=== PATIENT | female | born 1950 | race Caucasian/White ===

== ENCOUNTER 2022-01-17 10:34 | Observation (INO) ==
[2022-01-17] MEDS ORDERED: SODIUM CHLORIDE 0.9% 1000ML 1,000 ML IV SCH (11:30)
[2022-01-17 12:30] LABS: INR 0.9 (0.9-1.1); Partial Thromboplastin Ratio 1.1; Partial Thromboplastin Time 28.9 Seconds (21.0-31.0); Prothrombin Time 10.1 Seconds (9.0-12.0)
[2022-01-17 12:32] LABS: Basophils # (auto) 0.05 K/uL (0-0.2); Basophils % (auto) 0.6 %; Eosinophils # (auto) 0.19 K/uL (0-0.5); Eosinophils % (auto) 2.2 %; Hematocrit (blood only) 41.2 % (37-47); Hemoglobin 13.8 g/dL (12.0-16.0); Immature Granulocytes # (auto) 0.02 K/uL (0.00-0.02); Immature Granulocytes % (auto) 0.2 %; Lymphocytes # (auto) 2.18 K/uL (1.2-3.4); Mean Corpuscular Hemoglobin 30.5 pg (25-34); Mean Corpuscular Hgb Conc 33.5 g/dL (32-36); Mean Corpuscular Volume 90.9 fL (80-100); Mean Platelet Volume 9.9 fL (7.4-10.4); Monocytes # (auto) 0.67 K/uL (0.11-0.59); Monocytes % (auto) 7.7 %; Neutrophils # (auto) 5.62 K/uL (1.4-6.5); Neutrophils % (auto) 64.3 %; Platelet Count 328 K/uL (130-400); RDW Coefficient of Variation 14.8 % (11.5-14.5); RDW Standard Deviation 49.8 fL (36.4-46.3); Red Blood Count 4.53 M/uL (4.2-5.4); White Blood Count 8.73 K/uL (4.8-10.8)
[2022-01-17 12:45] LABS: Troponin I High Sensitivity 4.6 pg/ml (0-14)
[2022-01-17 12:46] LABS: Albumin Globulin Ratio 1.4 (0.9-2); Albumin Level 4.2 gm/dl (3.4-5.0); BUN Creatinine Ratio 19.4 (10-20); Bilirubin,Total 0.3 mg/dl (0.2-1.0); Calcium 9.2 mg/dl (8.5-10.1); Creatinine Clr Calc Pharmacy 63.4 ml/min; Est GFR (African American) 98.3 ml/min; Est GFR (Non-African American) 84.9 ml/min; Magnesium 1.8 mg/dl (1.7-2.4); Potassium 3.9 mmol/L (3.5-5.1); Total Protein 7.2 gm/dl (6.0-8.3)
[2022-01-17] MEDS ORDERED: OPTIRAY 320 125ml IV ONE (13:38)
--- NOTE | 2022-01-17 13:47 | CT Scan Report ---
UNENHANCED CT OF THE BRAIN; CT ANGIOGRAM OF THE BRAIN; CT ANGIOGRAM OF THE NECK CLINICAL HISTORY: Right-sided facial droop. Slurred speech. COMPARISON STUDY: No priors. TECHNIQUE: Unenhanced axial CT scan of the brain is performed. Subsequently, following the IV adminis tration of 120 of [address] 320, CT angiogram of the head and neck was performed from the aortic arch t o the vertex. Images are reviewed in the axial, sagittal, and coronal planes. 3-D MIPS images are cre ated and assessed. IV contrast was administered without complication. All measurements were calculate d based on NASCET criteria. A dose lowering technique was utilized adhering to the principles of ALA RA. CT DOSE: 822.00 mGycm (accession [id number]), 690.05 mGycm (accession [id number]) FINDINGS: Brain parenchyma: There is age-related involutional change noting minimal microangiopathic disease. L eft occipital encephalomalacia is consistent with a remote insult. There is no hemorrhage, mass effec t, or evidence of acute territorial ischemia by CT criteria. There is no evidence of enhancing mass l esion on the angiogram phase images. The ventricles, sulci, and cisterns are prominent secondary to i nvolutional change. A chronic lacunar infarct is noted in the right cerebellar hemisphere. Brennan-white matter differentiation is preserved. No extra-axial fluid collection is seen. Thoracic aorta: There is atherosclerotic calcification of the visualized thoracic aorta. Right carotid arterial system: The right common carotid artery is widely patent, as are the right int ernal and external carotid arteries. Calcified plaque is noted in the carotid bulb. Left carotid arterial system: The left common carotid artery is widely patent, as are the left university internship al and external carotid arteries. Minimal calcified plaque is seen in the carotid bulb. Vertebral arteries: The vertebral arteries are widely patent bilaterally and codominant. Subclavian arteries: Widely patent bilaterally. Intracranial vasculature: There is atherosclerotic calcification of the cavernous carotid and vertebr al arteries. The internal carotid arteries are patent at the skull base, as are the anterior and midd le cerebral arteries bilaterally. The vertebrobasilar system and posterior cerebral arteries are wide ly patent. The vertebral arteries are codominant. There is no aneurysm, high-grade stenosis, or focal vessel cut off seen throughout the intracranial circulation. Jugular veins: Patent bilaterally. Dural sinuses: Patent. Lung apices: Partially visualized upper lobe lung parenchyma appears clear. Soft tissues: The visualized pharyngeal soft tissues are normal in appearance noting angiographic pha se technique. The oropharyngeal airway appears widely patent. The thyroid gland is mildly enlarged an d heterogeneous. Calcified sialoliths are noted in the left parotid gland. The remaining salivary gla nds are normal in appearance. No cervical lymphadenopathy is seen. Skeletal structures: The skeletal structures are osteopenic. The calvarium appears intact. The cervic al spine is maintained noting multilevel spondylosis. No lytic or blastic lesion is seen. Orbits: The bony orbits are intact. Orbital contents are normal as visualized noting bilateral ocular lens implants. Sinuses and mastoids: There is trace mucosal thickening within the maxillary antra. The remaining par anasal sinuses are clear. The mastoid air cells are well pneumatized. IMPRESSION: 1. There is no hemorrhage, mass effect, or evidence of acute territorial ischemia by CT criteria. 2. Unremarkable CT angiogram of the brain. 3. Unremarkable CT angiogram of the neck. ACT 112: Negative or not required by law. Electronically signed by: Salty Gu M.D. 01/17/2022 1:46 PM
[2022-01-17] MEDS ORDERED: hydrALAZINE HCL 20 MG/ML VIAL IV ONE (14:42)
--- NOTE | 2022-01-17 14:42 | Emergency Department Note ---
Impression & Plan Cerebrovascular accident ED Provider Note CHIEF COMPLAINT: CVA HISTORY OF PRESENT ILLNESS: This 71 yo female patient presents to the emergency department with speech difficulties for the last 3 days. Patient states Monday morning she developed some pain in her teeth and a fullness in her tongue. The symptoms resolved quickly however she then had difficulty speaking. Patient states she did not get confused or develop weakness of the arms or legs. She thought perhaps the symptoms would resolve and therefore did not seek any medical attention. Patient's convinced her this morning that because the speech difficulties have persisted throughout the weekend that she should be seen. Patient states she has a history of hypertension and high cholesterol, she does smoke 1 pack of cigarettes per day. Her primary care physician is in [place], [place]. She used to live in that region and has not yet changed her primary care doctor. She denies any recent illnesses, fall, chest pain or shortness of breath. She denies any previous stroke history. REVIEW OF SYSTEMS: A review of systems was performed with positives and pertinent negatives listed in the history of present illness. 10 systems were reviewed and are otherwise negative. ALLERGIES: see below MEDICATIONS: see below PMH: see below SOCIAL HISTORY: see below DDx: Infection, dehydration, metabolic abnormality, hypo/hyperglycemia, electrolyte disturbance, anemia, hypoxia, cardiac sources, intracerebral event, toxicologic, neurologic, as well as other pathologies. PHYSICAL EXAM: Vital signs reviewed. General: Well-appearing 71 yo female, in no significant distress. HEENT: No scleral icterus, PERRLA, neck supple. + L subtle facial droop. no tongue deviation Cardiovascular: Regular rate and rhythm, no extra sounds. Pulmonary: Clear to auscultation bilaterally, normal work of breathing. Abdomen: Soft, nontender, nondistended, positive bowel sounds. Musculoskeletal: Atraumatic, no peripheral edema. Neurologic: Patient awake alert and oriented x 3, subtle dysarthria with mild left-sided facial droop. Intact [id number], negative pronator drift. Equal strength in all 4 extremities. Skin: Warm, dry, no rash EMERGENCY DEPARTMENT COURSE/MDM: This patient was evaluated and appeared to be in no significant distress. IV access was obtained and laboratory work was drawn. The patient was placed on the timber framer and noted to be in a normal sinus rhythm without evidence of PVC or PAC. Head CT was performed and reveals evidence of previous infarct but no acute abnormality. CT angiogram of the head and neck is unrevealing. Patient has residual left-sided facial droop and a mild dysarthria. Blood pressure is noted to be elevated throughout her stay. She was given 5 mg of IV hydralazine for better blood pressure control without dropping too far, ideally. Patient states she did take her olmesartan this morning as scheduled. Given her high risk history with previous infarct noted on CT and tobacco use, I feel she warrants further stroke evaluation in- house. Hospitalist service has been consulted for admission and further management. Patient and are aware of the plan and agreed. MONITORING: An order for cardiac monitoring was placed and the patient is noted to be in a NSR at 88 beats per minute. RADIOLOGY: see below EKG: Normal sinus rhythm at [address] segments. Normal axis. QTC of 463. No PVC, no PAC. No previous for comparison. DISPOSITION: Admission Past Med/Surg History Medical History Hyperlipidemia Hypertension Surgical History History of bilateral tubal ligation History of cataract surgery RIGHT History of section x2 History of colonoscopy History of tonsillectomy Family History Other No family history of adverse response to anesthesia Social History Smoking Status: Current every day smoker Cigarettes Per Day: 1PPD/ADVISED NPO; Second Hand Exposure: Yes; Hx Alcohol Use: No Hx Substance Use: No Preferred Language: Vincentian Communication Ability: Effective Community Sports Coordinator Required: No Beliefs That Will Affect Care: None Current Living Situation: Spouse Feels Safe at Home: Yes Assistive Devices: Glasses Allergies Allergies Allergy/AdvReac Type Severity Reaction Status Date / Time No Known Allergies Allergy Verified 01/17/22 14:15 Home Meds Home Medications Medication Instructions Recorded Confirmed olmesartan 20 mg tablet 20 mg PO QAM 03/30/19 01/17/22 aspirin 325 mg tablet 325 - 650 mg PO BID PRN 01/17/22 01/17/22 simvastatin 80 mg tablet 80 mg PO QPM 01/17/22 01/17/22 Results & Data (ED) Vital Signs Vital Signs - 24 hr 01/17/22 10:40 01/17/22 11:00 01/17/22 11:03 Temperature 36.7 C Temperature Source Temporal Artery Scan Pulse Rate 96 H 98 H Pulse Rate [Apical] 97 H Pulse Rate from SpO2 Sensor 98 H Pulse Rhythm Regular Pulse Rhythm [Apical] Regular Pulse Strength Normal Pulse Strength [Apical] Normal Respiratory Rate 20 16 18 Respiratory Effort / Characteristics Non-Labored Spontaneous Non-Labored Spontaneous Respiratory Depth Normal Normal Respiratory Pattern Regular Regular Blood Pressure 169/84 H Blood Pressure [Left Arm] 159/92 H Blood Pressure Mean 112 Blood Pressure Mean [Left Arm] 114 Blood Pressure Position Sitting Blood Pressure Position [Left Arm] Semi-fowlers Pulse Oximetry 98 97 96 Oxygen Delivery Method Room Air Room Air Sepsis Recent Fever Within 48 Hours No Sepsis New/Unexplained Change in Mental Status No Sepsis Action Taken by Nursing No Action Required 01/17/22 11:30 01/17/22 11:38 01/17/22 11:41 Temperature Temperature Source Pulse Rate 88 88 Pulse Rate [Apical] Pulse Rate from SpO2 Sensor Pulse Rhythm Pulse Rhythm [Apical] Pulse Strength Pulse Strength [Apical] Respiratory Rate 18 Respiratory Effort / Characteristics Respiratory Depth Respiratory Pattern Blood Pressure 142/115 H Blood Pressure [Left Arm] Blood Pressure Mean 124 Blood Pressure Mean [Left Arm] Blood Pressure Position Blood Pressure Position [Left Arm] Pulse Oximetry Oxygen Delivery Method Room Air Sepsis Recent Fever Within 48 Hours Sepsis New/Unexplained Change in Mental Status Sepsis Action Taken by [facility] Medications Current Medication List: was personally reviewed by me Laboratory Data Attestation: I reviewed the patient's lab results. Result diagrams: 01/17/22 11:55 01/17/22 11:55 Lab Results 01/17/22 01/17/22 01/17/22 Range/Units 11:35 11:55 11:55 WBC 8.73 (4.8-10.8) K/uL RBC 4.53 (4.2-5.4) M/uL Hgb 13.8 (12.0-16.0) g/dL Hct 41.2 (37-47) % MCV 90.9 (80-100) fL MCH 30.5 (25-34) pg MCHC 33.5 (32-36) g/dL RDW Std Deviation 49.8 H (36.4-46.3) fL RDW Coeff of Samson 14.8 H (11.5-14.5) % Plt Count 328 (130-400) K/uL MPV 9.9 (7.4-10.4) fL Immature Gran % (Auto) 0.2 % Neut % (Auto) 64.3 % Lymph % (Auto) 25.0 % [place] % (Auto) 7.7 % Eos % (Auto) 2.2 % Baso % (Auto) 0.6 % Neut # (Auto) 5.62 (1.4-6.5) K/uL Lymph # (Auto) 2.18 (1.2-3.4) K/uL [place] # (Auto) 0.67 H (0.11-0.59) K/uL Eos # (Auto) 0.19 (0-0.5) K/uL Baso # (Auto) 0.05 (0-0.2) K/uL Immature Gran # (Auto) 0.02 (0.00-0.02) K/uL PT 10.1 (9.0-12.0) Seconds INR 0.9 (0.9-1.1) APTT 28.9 (21.0-31.0) Seconds PTT Ratio 1.1 Sodium (136-145) mmol/L Potassium (3.5-5.1) mmol/L Chloride (98-107) mmol/L Carbon Dioxide (21-32) mmol/L Anion Gap (3-11) BUN (6-23) mg/dl Creatinine (0.6-1.2) mg/dl Est Cr Clr Drug Dosing ml/min Est GFR ( Amer) ml/min Est GFR (Non-Af Amer) ml/min BUN/Creatinine Ratio (10-20) Glucose (70-99(Fasting)) mg/dl Calcium (8.5-10.1) mg/dl Magnesium (1.7-2.4) mg/dl Total Bilirubin (0.2-1.0) mg/dl AST (13-39) U/L ALT (7-52) U/L Alkaline Phosphatase (34-104) U/L Troponin I High Sens (0-14) pg/ml Total Protein (6.0-8.3) gm/dl Albumin (3.4-5.0) gm/dl Globulin (2.5-4.0) gm/dl Albumin/Globulin Ratio (0.9-2) SARS-CoV-2, RNA, NAAT NEGATIVE (NEGATIVE) 01/17/22 Range/Units 11:55 WBC (4.8-10.8) K/uL RBC (4.2-5.4) M/uL Hgb (12.0-16.0) g/dL Hct (37-47) % MCV (80-100) fL MCH (25-34) pg MCHC (32-36) g/dL RDW Std Deviation (36.4-46.3) fL RDW Coeff of Samson (11.5-14.5) % Plt Count (130-400) K/uL MPV (7.4-10.4) fL Immature Gran % (Auto) % Neut % (Auto) % Lymph % (Auto) % [place] % (Auto) % Eos % (Auto) % Baso % (Auto) % Neut # (Auto) (1.4-6.5) K/uL Lymph # (Auto) (1.2-3.4) K/uL [place] # (Auto) (0.11-0.59) K/uL Eos # (Auto) (0-0.5) K/uL Baso # (Auto) (0-0.2) K/uL Immature Gran # (Auto) (0.00-0.02) K/uL PT (9.0-12.0) Seconds INR (0.9-1.1) APTT (21.0-31.0) Seconds PTT Ratio Sodium 140 (136-145) mmol/L Potassium 3.9 (3.5-5.1) mmol/L Chloride 108 H (98-107) mmol/L Carbon Dioxide 22 (21-32) mmol/L Anion Gap 10 (3-11) BUN 14 (6-23) mg/dl Creatinine 0.72 (0.6-1.2) mg/dl Est Cr Clr Drug Dosing 63.4 ml/min Est GFR ( Amer) 98.3 ml/min Est GFR (Non-Af Amer) 84.9 ml/min BUN/Creatinine Ratio 19.4 (10-20) Glucose 108 H (70-99(Fasting)) mg/dl Calcium 9.2 (8.5-10.1) mg/dl Magnesium 1.8 (1.7-2.4) mg/dl Total Bilirubin 0.3 (0.2-1.0) mg/dl AST 15 (13-39) U/L ALT 20 (7-52) U/L Alkaline Phosphatase 102 (34-104) U/L Troponin I High Sens 4.6 (0-14) pg/ml Total Protein 7.2 (6.0-8.3) gm/dl Albumin 4.2 (3.4-5.0) gm/dl Globulin 3.0 (2.5-4.0) gm/dl Albumin/Globulin Ratio 1.4 (0.9-2) SARS-CoV-2, RNA, NAAT (NEGATIVE) Administered Medications Sodium Chloride (Nss 1000ml) 1,000 mls @ 50 mls/hr IV .Q20H WILLIAN Stop: 02/16/22 11:29 Last Admin: 01/17/22 11:40 Dose: 50 mls/hr Documented by: [id number] Discontinued Medications Ioversol (Optiray 320 125ml) 120 ml IV ONCE ONE Stop: 01/17/22 13:39 Last Admin: 01/17/22 13:32 Dose: 120 ml Documented by: [id number] Imaging Data Radiologist's Impression: Head CT 01/17/22 11:[address] OF THE BRAIN; CT ANGIOGRAM OF THE BRAIN; CT ANGIOGRAM OF THE NECK CLINICAL HISTORY: Right-sided facial droop. Slurred speech. COMPARISON STUDY: No priors. TECHNIQUE: Unenhanced axial CT scan of the brain is performed. Subsequently, following the IV administration of 120 of Optiray 320, CT angiogram of the head and neck was performed from the aortic arch to the vertex. Images are reviewed in the axial, sagittal, and coronal planes. 3-D MIPS images are created and assessed. IV contrast was administered without complication. All measurements were calculated based on NASCET criteria. A dose lowering technique was utilized adhering to the principles of ALARA. CT DOSE: 822.00 mGycm (accession [id number]), 690.05 mGycm (accession [id number]) FINDINGS: Brain parenchyma: There is age-related involutional change noting minimal micro angiopathic disease. Left occipital encephalomalacia is consistent with a remote insult. There is no hemorrhage, mass effect, or evidence of acute territorial ischemia by CT criteria. There is no evidence of enhancing mass lesion on the angiogram phase images. The ventricles, sulci, and cisterns are prominent secondary to involutional change. A chronic lacunar infarct is noted in the right cerebellar hemisphere. Brennan-white matter differentiation is preserved. No extra-axial fluid collection is seen. Thoracic aorta: There is atherosclerotic calcification of the visualized thoracic aorta. Right carotid arterial system: The right common carotid artery is widely patent, as are the right internal and external carotid arteries. Calcified plaque is noted in the carotid bulb. Left carotid arterial system: The left common carotid artery is widely patent, as are the left internal and external carotid arteries. Minimal calcified plaque is seen in the carotid bulb. Vertebral arteries: The vertebral arteries are widely patent bilaterally and codominant. Subclavian arteries: Widely patent bilaterally. Intracranial vasculature: There is atherosclerotic calcification of the cavernous carotid and vertebral arteries. The internal carotid arteries are patent at the skull base, as are the anterior and middle cerebral arteries bilaterally. The vertebrobasilar system and posterior cerebral arteries are widely patent. The vertebral arteries are codominant. There is no aneurysm, high-grade stenosis, or focal vessel cut off seen throughout the intracranial circulation. Jugular veins: Patent bilaterally. Dural sinuses: Patent. Lung apices: Partially visualized upper lobe lung parenchyma appears clear. Soft tissues: The visualized pharyngeal soft tissues are normal in appearance noting angiographic phase technique. The oropharyngeal airway appears widely patent. The thyroid gland is mildly enlarged and heterogeneous. Calcified sialol iths are noted in the left parotid gland. The remaining salivary glands are normal in appearance. No cervical lymphadenopathy is seen. Skeletal structures: The skeletal structures are osteopenic. The calvarium appears intact. The cervical spine is maintained noting multilevel spondylosis. No lytic or blastic lesion is seen. Orbits: The bony orbits are intact. Orbital contents are normal as visualized noting bilateral ocular lens implants. Sinuses and mastoids: There is trace mucosal thickening within the maxillary an tra. The remaining paranasal sinuses are clear. The mastoid air cells are well pneumatized. IMPRESSION: 1. There is no hemorrhage, mass effect, or evidence of acute territorial ischemia by CT criteria. 2. Unremarkable CT angiogram of the brain. 3. Unremarkable CT angiogram of the neck. ACT 112: Negative or not required by law. Electronically signed by: Salty Gu M.D. 01/17/2022 1:46 PM Head CTA 01/17/22 11:[address] OF THE BRAIN; CT ANGIOGRAM OF THE BRAIN; CT ANGIOGRAM OF THE NECK CLINICAL HISTORY: Right-sided facial droop. Slurred speech. COMPARISON STUDY: No priors. TECHNIQUE: Unenhanced axial CT scan of the brain is performed. Subsequently, following the IV administration of 120 of Optiray 320, CT angiogram of the head and neck was performed from the aortic arch to the vertex. Images are reviewed in the axial, sagittal, and coronal planes. 3-D MIPS images are created and assessed. IV contrast was administered without complication. All measurements were calculated based on NASCET criteria. A dose lowering technique was utilized adhering to the principles of ALARA. CT DOSE: 822.00 mGycm (accession [id number]), 690.05 mGycm (accession [id number]) FINDINGS: Brain parenchyma: There is age-related involutional change noting minimal microangiopathic disease. Left occipital encephalomalacia is consistent with a remote insult. There is no hemorrhage, mass effect, or evidence of acute territorial ischemia by CT criteria. There is no evidence of enhancing mass lesion on the angiogram phase images. The ventricles, sulci, and cisterns are prominent secondary to involutional change. A chronic lacunar infarct is noted in the right cerebellar hemisphere. Brennan-white matter differentiation is preserved. No extra-axial fluid collection is seen. Thoracic aorta: There is atherosclerotic calcification of the visualized thoracic aorta. Right carotid arterial system: The right common carotid artery is widely patent, as are the right internal and external carotid arteries. Calcified plaque is noted in the carotid bulb. Left carotid arterial system: The left common carotid artery is widely patent, as are the left internal and external carotid arteries. Minimal calcified plaque is seen in the carotid bulb. Vertebral arteries: The vertebral arteries are widely patent bilaterally and codominant. Subclavian arteries: Widely patent bilaterally. Intracranial vasculature: There is atherosclerotic calcification of the cavernous carotid and vertebral arteries. The internal carotid arteries are patent at the skull base, as are the anterior and middle cerebral arteries bilaterally. The vertebrobasilar system and posterior cerebral arteries are widely patent. The vertebral arteries are codominant. There is no aneurysm, high-grade stenosis, or focal vessel cut off seen throughout the intracranial circulation. Jugular veins: Patent bilaterally. Dural sinuses: Patent. Lung apices: Partially visualized upper lobe lung parenchyma appears clear. Soft tissues: The visualized pharyngeal soft tissues are normal in appearance noting angiographic phase technique. The oropharyngeal airway appears widely patent. The thyroid gland is mildly enlarged and heterogeneous. Calcified sialoliths are noted in the left parotid gland. The remaining salivary glands are normal in appearance. No cervical lymphadenopathy is seen. Skeletal structures: The skeletal structures are osteopenic. The calvarium appears intact. The cervical spine is maintained noting multilevel spondylosis. No lytic or blastic lesion is seen. Orbits: The bony orbits are intact. Orbital contents are normal as visualized noting bilateral ocular lens implants. Sinuses and mastoids: There is trace mucosal thickening within the maxillary antra. The remaining paranasal sinuses are clear. The mastoid air cells are well pneumatized. IMPRESSION: 1. There is no hemorrhage, mass effect, or evidence of acute territorial ischemia by CT criteria. 2. Unremarkable CT angiogram of the brain. 3. Unremarkable CT angiogram of the neck. ACT 112: Negative or not required by law. Electronically signed by: Salty Gu M.D. 01/17/2022 1:46 PM Neck CTA 01/17/22 11:[address] OF THE BRAIN; CT ANGIOGRAM OF THE BRAIN; CT ANGIOGRAM OF THE NECK CLINICAL HISTORY: Right-sided facial droop. Slurred speech. COMPARISON STUDY: No priors. TECHNIQUE: Unenhanced axial CT scan of the brain is performed. Subsequently, following the IV administration of 120 of Optiray 320, CT angiogram of the head and neck was performed from the aortic arch to the vertex. Images are reviewed in the axial, sagittal, and coronal planes. 3-D MIPS images are created and assessed. IV contrast was administered without complication. All measurements were calculated based on NASCET criteria. A dose lowering technique was utilized adhering to the principles of ALARA. CT DOSE: 822.00 mGycm (accession [id number]), 690.05 mGycm (accession [id number]) FINDINGS: Brain parenchyma: There is age-related involutional change noting minimal microangiopathic disease. Left occipital encephalomalacia is consistent with a remote insult. There is no hemorrhage, mass effect, or evidence of acute territorial ischemia by CT criteria. There is no evidence of enhancing mass lesion on the angiogram phase images. The ventricles, sulci, and cisterns are prominent secondary to involutional change. A chronic lacunar infarct is noted in the right cerebellar hemisphere. Brennan-white matter differentiation is preserved. No extra-axial fluid collection is seen. Thoracic aorta: There is atherosclerotic calcification of the visualized thoracic aorta. Right carotid arterial system: The right common carotid artery is widely patent, as are the right internal and external carotid arteries. Calcified plaque is noted in the carotid bulb. Left carotid arterial system: The left common carotid artery is widely patent, as are the left internal and external carotid arteries. Minimal calcified plaque is seen in the carotid bulb. Vertebral arteries: The vertebral arteries are widely patent bilaterally and codominant. Subclavian arteries: Widely patent bilaterally. Intracranial vasculature: There is atherosclerotic calcification of the cavernous carotid and vertebral arteries. The internal carotid arteries are patent at the skull base, as are the anterior and middle cerebral arteries bilaterally. The vertebrobasilar system and posterior cerebral arteries are widely patent. The vertebral arteries are codominant. There is no aneurysm, high-grade stenosis, or focal vessel cut off seen throughout the intracranial circulation. Jugular veins: Patent bilaterally. Dural sinuses: Patent. Lung apices: Partially visualized upper lobe lung parenchyma appears clear. Soft tissues: The visualized pharyngeal soft tissues are normal in appearance noting angiographic phase technique. The oropharyngeal airway appears widely patent. The thyroid gland is mildly enlarged and heterogeneous. Calcified sialoliths are noted in the left parotid gland. The remaining salivary glands are normal in appearance. No cervical lymphadenopathy is seen. Skeletal structures: The skeletal structures are osteopenic. The calvarium appears intact. The cervical spine is maintained noting multilevel spondylosis. No lytic or blastic lesion is seen. Orbits: The bony orbits are intact. Orbital contents are normal as visualized noting bilateral ocular lens implants. Sinuses and mastoids: There is trace mucosal thickening within the maxillary antra. The remaining paranasal sinuses are clear. The mastoid air cells are well pneumatized. IMPRESSION: 1. There is no hemorrhage, mass effect, or evidence of acute territorial ischemia by CT criteria. 2. Unremarkable CT angiogram of the brain. 3. Unremarkable CT angiogram of the neck. ACT 112: Negative or not required by law. Electronically signed by: Salty Gu M.D. 01/17/2022 1:46 PM Blood Pressure Blood Pressure Findings: Elevated blood pressure Blood Pressure Disposition: Referred to patients primary care provider Discharge Plan Visit Data Chief Complaint: Stroke/CVA Symptoms Stated Complaint: SLURRED SPEECH, DROOPY ON RT SIDE OF FACE ED Provider: Jackelyn Pichardo Discharge Problem: Cerebrovascular accident Forms Stand Alone Forms: [facility] Prescriptions Prescriptions: No Action olmesartan 20 mg tablet 20 mg PO QAM RF: 0 simvastatin 80 mg tablet 80 mg PO QPM RF: 0 aspirin 325 mg Tablet 325 - 650 mg PO BID PRN (Reason: Pain) RF: 0 Referrals Referrals: Bruno Castro D.O. [Primary Care Provider] - Discharge Problem: Cerebrovascular accident Qualifiers: CVA mechanism: unspecified Qualified Code(s): I63.9 - Cerebral infarction, unspecified
--- NOTE | 2022-01-17 14:59 | Medical Student H&P ---
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 CT head/neck and CTA show no abnormalities -MRI to further evaluate and locate stroke. Possibly a lacunar infarct. less likely MCA given lack of upper extremity involvement. -TTE to evaluate for embolic cardiac causes for stroke -tele monitoring -check cholesterol and blood glucose in the AM, adjust medication accordingly -patient currently takes 325 aspirin prn for ORANTES. switch to daily 81 mg. -speech/swallow evaluation. May transition to a normal diet if clear CVA mechanism: unspecified Qualified Code(s): I63.9 - Cerebral infarction, unspecified (2) Essential hypertension: Plan: chronic. currently on olmesartan. continue home meds. 150s/80s likley elevated from baseline after strock continue to monitor BP overnight, adjust medication accordingly (3) Hyperlipemia: Plan: chronic. Currently on simvastatin 80 mg. Check cholesterol panel tomorrow AM and adjust medications accordingly Diet: NPO until cleared by swallow/speech assessment Code status: conditional code DNI DVT prophylaxis: Lovenox 40 mg subq once/day Dispo: Admit to med/tele Admission and Anticipated Discharge Date Admission Date: 01/17/2022 History of Present Illness Chief Complaint: "Slow speech" Primary Care Provider: Bruno Castro Mrs. Bhat is a pleasant 71 yo female with a pmh of hyperlipidemia, htn, 20 pack year smoking hx who presented to the ED this afternoon, upon the encouragement of her who accompanies her. 2 days ago, she experienced pain in her teeth, hearing an echo, slow speech, and left sided facial weakness. Patient says that teeth pain and hearing echo resolved within seconds but her slow speech and facial weakness remains. Allergies Allergy/AdvReac Type Severity Reaction Status Date / Time No Known Allergies Allergy Verified 01/17/22 14:15 Home Medications Medication Instructions Recorded Confirmed Type olmesartan 20 mg tablet 20 mg PO QAM 03/30/19 01/17/22 History apixaban 5 mg tablet (Eliquis) 5 mg PO BID #30 tab 01/18/22 Rx atorvastatin 40 mg tablet 40 mg PO QAM 30 Days #30 tab 01/18/22 Rx Past Med/Surg History Medical History (Updated 01/17/22 @ 17:09 by Rhianna Ramesh) Hyperlipidemia Hypertension Surgical History History of bilateral tubal ligation History of cataract surgery RIGHT History of section x2 History of colonoscopy History of tonsillectomy Family History Other No family history of adverse response to anesthesia Social History Smoking Status: Current every day smoker Cigarettes Per Day: 20; Second Hand Exposure: Yes; Hx Alcohol Use: No Hx Substance Use: No Preferred Language: [place]an Communication Ability: Effective Prepress Manager Required: No Beliefs That Will Affect Care: None Current Living Situation: Spouse Current Living Situation Comment: home with . Feels Safe at Home: Yes Assistive Devices: None Review of Systems no fever, no chills, no sweats, no fatigue, no malaise and no weakness no diplopia, no eye pain, no loss of peripheral vision, no spots in vision and no worsening vision no cough, no chest congestion and no dyspnea no chest pain, no chest pain at rest and no dyspnea no nausea, no vomiting and no hematemesis no muscle weakness + localized weakness (left side facial weakness); no falls, no generalized weakness, no paralysis, no tingling and no numbness no depression and no anxiety Physical Exam Constitutional: well developed; no acute distress Respiratory: normal respiratory effort, lungs clear to auscultation no respiratory distress Cardiovascular: RRR, no murmur, no edema Gastrointestinal (Abdomen): normal bowel sounds, soft, nontender, no hepatosplenomegaly Neurologic: moves all extremities and + focal motor deficit (left sided facail weakenss) Speech / Cognition: + abnormal speech (slowed speech) Psychiatric: A+Ox3, euthymic affect Results & Data ([facility]) Vital Signs (Past 12 Hours) Vital Signs Temp Pulse Pulse Resp BP BP Pulse Ox 01/17/22 14:00 86 22 160/100 H 01/17/22 13:57 80 20 168/84 H 96 01/17/22 11:48 87 01/17/22 11:38 88 142/115 H 01/17/22 11:30 88 18 01/17/22 11:03 98 H 18 96 01/17/22 11:00 97 H 16 159/92 H 97 01/17/22 10:40 36.7 C 96 H 20 169/84 H 98 Laboratory Results 01/17/22 01/17/22 01/17/22 Range/Units 11:55 11:55 11:55 WBC 8.73 (4.8-10.8) K/uL RBC 4.53 (4.2-5.4) M/uL Hgb 13.8 (12.0-16.0) g/dL Hct 41.2 (37-47) % MCV 90.9 (80-100) fL MCH 30.5 (25-34) pg MCHC 33.5 (32-36) g/dL RDW Std Deviation 49.8 H (36.4-46.3) fL RDW Coeff of Samson 14.8 H (11.5-14.5) % Plt Count 328 (130-400) K/uL MPV 9.9 (7.4-10.4) fL Immature Gran % (Auto) 0.2 % Neut % (Auto) 64.3 % Lymph % (Auto) 25.0 % [place] % (Auto) 7.7 % Eos % (Auto) 2.2 % Baso % (Auto) 0.6 % Neut # (Auto) 5.62 (1.4-6.5) K/uL Lymph # (Auto) 2.18 (1.2-3.4) K/uL [place] # (Auto) 0.67 H (0.11-0.59) K/uL Eos # (Auto) 0.19 (0-0.5) K/uL Baso # (Auto) 0.05 (0-0.2) K/uL Immature Gran # (Auto) 0.02 (0.00-0.02) K/uL PT 10.1 (9.0-12.0) Seconds INR 0.9 (0.9-1.1) APTT 28.9 (21.0-31.0) Seconds PTT Ratio 1.1 Sodium 140 (136-145) mmol/L Potassium 3.9 (3.5-5.1) mmol/L Chloride 108 H (98-107) mmol/L Carbon Dioxide 22 (21-32) mmol/L Anion Gap 10 (3-11) BUN 14 (6-23) mg/dl Creatinine 0.72 (0.6-1.2) mg/dl Est Cr Clr Drug Dosing 63.4 ml/min Est GFR ( Amer) 98.3 ml/min Est GFR (Non-Af Amer) 84.9 ml/min BUN/Creatinine Ratio 19.4 (10-20) Glucose 108 H (70-99(Fasting)) mg/dl Calcium 9.2 (8.5-10.1) mg/dl Magnesium 1.8 (1.7-2.4) mg/dl Total Bilirubin 0.3 (0.2-1.0) mg/dl AST 15 (13-39) U/L ALT 20 (7-52) U/L Alkaline Phosphatase 102 (34-104) U/L Troponin I High Sens 4.6 (0-14) pg/ml Total Protein 7.2 (6.0-8.3) gm/dl Albumin 4.2 (3.4-5.0) gm/dl Globulin 3.0 (2.5-4.0) gm/dl Albumin/Globulin Ratio 1.4 (0.9-2) SARS-CoV-2, RNA, NAAT (NEGATIVE) 01/17/22 Range/Units 11:35 WBC (4.8-10.8) K/uL RBC (4.2-5.4) M/uL Hgb (12.0-16.0) g/dL Hct (37-47) % MCV (80-100) fL MCH (25-34) pg MCHC (32-36) g/dL RDW Std Deviation (36.4-46.3) fL RDW Coeff of Samson (11.5-14.5) % Plt Count (130-400) K/uL MPV (7.4-10.4) fL Immature Gran % (Auto) % Neut % (Auto) % Lymph % (Auto) % [place] % (Auto) % Eos % (Auto) % Baso % (Auto) % Neut # (Auto) (1.4-6.5) K/uL Lymph # (Auto) (1.2-3.4) K/uL [place] # (Auto) (0.11-0.59) K/uL Eos # (Auto) (0-0.5) K/uL Baso # (Auto) (0-0.2) K/uL Immature Gran # (Auto) (0.00-0.02) K/uL PT (9.0-12.0) Seconds INR (0.9-1.1) APTT (21.0-31.0) Seconds PTT Ratio Sodium (136-145) mmol/L Potassium (3.5-5.1) mmol/L Chloride (98-107) mmol/L Carbon Dioxide (21-32) mmol/L Anion Gap (3-11) BUN (6-23) mg/dl Creatinine (0.6-1.2) mg/dl Est Cr Clr Drug Dosing ml/min Est GFR ( Amer) ml/min Est GFR (Non-Af Amer) ml/min BUN/Creatinine Ratio (10-20) Glucose (70-99(Fasting)) mg/dl Calcium (8.5-10.1) mg/dl Magnesium (1.7-2.4) mg/dl Total Bilirubin (0.2-1.0) mg/dl AST (13-39) U/L ALT (7-52) U/L Alkaline Phosphatase (34-104) U/L Troponin I High Sens (0-14) pg/ml Total Protein (6.0-8.3) gm/dl Albumin (3.4-5.0) gm/dl Globulin (2.5-4.0) gm/dl Albumin/Globulin Ratio (0.9-2) SARS-CoV-2, RNA, NAAT NEGATIVE (NEGATIVE) Diagnostic Findings Impressions Head CT 01/17/22 11:[address] OF THE BRAIN; CT ANGIOGRAM OF THE BRAIN; CT ANGIOGRAM OF THE NECK CLINICAL HISTORY: Right-sided facial droop. Slurred speech. COMPARISON STUDY: No priors. TECHNIQUE: Unenhanced axial CT scan of the brain is performed. Subsequently, following the IV administration of 120 of Optiray 320, CT angiogram of the head and neck was performed from the aortic arch to the vertex. Images are reviewed in the axial, sagittal, and coronal planes. 3-D MIPS images are created and assessed. IV contrast was administered without complication. All measurements were calculated based on NASCET criteria. A dose lowering technique was utilized adhering to the principles of ALARA. CT DOSE: 822.00 mGycm (accession [id number]), 690.05 mGycm (accession [id number]) FINDINGS: Brain parenchyma: There is age-related involutional change noting minimal microangiopathic disease. Left occipital encephalomalacia is consistent with a remote insult. There is no hemorrhage, mass effect, or evidence of acute terr itorial ischemia by CT criteria. There is no evidence of enhancing mass lesion on the angiogram phase images. The ventricles, sulci, and cisterns are prominent secondary to involutional change. A chronic lacunar infarct is noted in the right cerebellar hemisphere. Brennan-white matter differentiation is preserved. No extra-axial fluid collection is seen. Thoracic aorta: There is atherosclerotic calcification of the visualized thoracic aorta. Right carotid arterial system: The right common carotid artery is widely patent, as are the right internal and external carotid arteries. Calcified plaque is noted in the carotid bulb. Left carotid arterial system: The left common carotid artery is widely patent, as are the left internal and external carotid arteries. Minimal calcified plaque is seen in the carotid bulb. Vertebral arteries: The vertebral arteries are widely patent bilaterally and codominant. Subclavian arteries: Widely patent bilaterally. Intracranial vasculature: There is atherosclerotic calcification of the cavernous carotid and vertebral arteries. The internal carotid arteries are patent at the skull base, as are the anterior and middle cerebral arteries bilaterally. The vertebrobasilar system and posterior cerebral arteries are widely patent. The vertebral arteries are codominant. There is no aneurysm, high-grade stenosis, or focal vessel cut off seen throughout the intracranial circulation. Jugular veins: Patent bilaterally. Dural sinuses: Patent. Lung apices: Partially visualized upper lobe lung parenchyma appears clear. Soft tissues: The visualized pharyngeal soft tissues are normal in appearance noting angiographic phase technique. The oropharyngeal airway appears widely patent. The thyroid gland is mildly enlarged and heterogeneous. Calcified sialoliths are noted in the left parotid gland. The remaining salivary glands are normal in appearance. No cervical lymphadenopathy is seen. Skeletal structures: The skeletal structures are osteopenic. The calvarium appears intact. The cervical spine is maintained noting multilevel spondylosis. No lytic or blastic lesion is seen. Orbits: The bony orbits are intact. Orbital contents are normal as visualized noting bilateral ocular lens implants. Sinuses and mastoids: There is trace mucosal thickening within the maxillary antra. The remaining paranasal sinuses are clear. The mastoid air cells are well pneumatized. IMPRESSION: 1. There is no hemorrhage, mass effect, or evidence of acute territorial ischemia by CT criteria. 2. Unremarkable CT angiogram of the brain. 3. Unremarkable CT angiogram of the neck. ACT 112: Negative or not required by law. Electronically signed by: Salty Gu M.D. 01/17/2022 1:46 PM Head CTA 01/17/22 11:[address] OF THE BRAIN; CT ANGIOGRAM OF THE BRAIN; CT ANGIOGRAM OF THE NECK CLINICAL HISTORY: Right-sided facial droop. Slurred speech. COMPARISON STUDY: No priors. TECHNIQUE: Unenhanced axial CT scan of the brain is performed. Subsequently, following the IV administration of 120 of Optiray 320, CT angiogram of the head and neck was performed from the aortic arch to the vertex. Images are reviewed in the axial, sagittal, and coronal planes. 3-D MIPS images are created and assessed. IV contrast was administered without complication. All measurements were calculated based on NASCET criteria. A dose lowering technique was utilized adhering to the principles of ALARA. CT DOSE: 822.00 mGycm (accession [id number]), 690.05 mGycm (accession [id number]) FINDINGS: Brain parenchyma: There is age-related involutional change noting minimal microangiopathic disease. Left occipital encephalomalacia is consistent with a remote insult. There is no hemorrhage, mass effect, or evidence of acute territorial ischemia by CT criteria. There is no evidence of enhancing mass lesion on the angiogram phase images. The ventricles, sulci, and cisterns are prominent secondary to involutional change. A chronic lacunar infarct is noted in the right cerebellar hemisphere. Brennan-white matter differentiation is preserved. No extra-axial fluid collection is seen. Thoracic aorta: There is atherosclerotic calcification of the visualized thoracic aorta. Right carotid arterial system: The right common carotid artery is widely patent, as are the right internal and external carotid arteries. Calcified plaque is noted in the carotid bulb. Left carotid arterial system: The left common carotid artery is widely patent, as are the left internal and external carotid arteries. Minimal calcified plaque is seen in the carotid bulb. Vertebral arteries: The vertebral arteries are widely patent bilaterally and codominant. Subclavian arteries: Widely patent bilaterally. Intracranial vasculature: There is atherosclerotic calcification of the cavernous carotid and vertebral arteries. The internal carotid arteries are patent at the skull base, as are the anterior and middle cerebral arteries bilaterally. The vertebrobasilar system and posterior cerebral arteries are widely patent. The vertebral arteries are codominant. There is no aneurysm, high-grade stenosis, or focal vessel cut off seen throughout the intracranial circulation. Jugular veins: Patent bilaterally. Dural sinuses: Patent. Lung apices: Partially visualized upper lobe lung parenchyma appears clear. Soft tissues: The visualized pharyngeal soft tissues are normal in appearance noting angiographic phase technique. The oropharyngeal airway appears widely patent. The thyroid gland is mildly enlarged and heterogeneous. Calcified sialoliths are noted in the left parotid gland. The remaining salivary glands are normal in appearance. No cervical lymphadenopathy is seen. Skeletal structures: The skeletal structures are osteopenic. The calvarium appears intact. The cervical spine is maintained noting multilevel spondylosis. No lytic or blastic lesion is seen. Orbits: The bony orbits are intact. Orbital contents are normal as visualized noting bilateral ocular lens implants. Sinuses and mastoids: There is trace mucosal thickening within the maxillary antra. The remaining paranasal sinuses are clear. The mastoid air cells are well pneumatized. IMPRESSION: 1. There is no hemorrhage, mass effect, or evidence of acute territorial ischemia by CT criteria. 2. Unremarkable CT angiogram of the brain. 3. Unremarkable CT angiogram of the neck. ACT 112: Negative or not required by law. Electronically signed by: Salty Gu M.D. 01/17/2022 1:46 PM Neck CTA 01/17/22 11:[address] OF THE BRAIN; CT ANGIOGRAM OF THE BRAIN; CT ANGIOGRAM OF THE NECK CLINICAL HISTORY: Right-sided facial droop. Slurred speech. COMPARISON STUDY: No priors. TECHNIQUE: Unenhanced axial CT scan of the brain is performed. Subsequently, following the IV administration of 120 of Optiray 320, CT angiogram of the head and neck was performed from the aortic arch to the vertex. Images are reviewed in the axial, sagittal, and coronal planes. 3-D MIPS images are created and assessed. IV contrast was administered without complication. All measurements were calculated based on NASCET criteria. A dose lowering technique was utilized adhering to the principles of ALARA. CT DOSE: 822.00 mGycm (accession [id number]), 690.05 mGycm (accession [id number]) FINDINGS: Brain parenchyma: There is age-related involutional change noting minimal microangiopathic disease. Left occipital encephalomalacia is consistent with a remote insult. There is no hemorrhage, mass effect, or evidence of acute territorial ischemia by CT criteria. There is no evidence of enhancing mass lesion on the angiogram phase images. The ventricles, sulci, and cisterns are prominent secondary to involutional change. A chronic lacunar infarct is noted in the right cerebellar hemisphere. Brennan-white matter differentiation is preserved. No extra-axial fluid collection is seen. Thoracic aorta: There is atherosclerotic calcification of the visualized thoracic aorta. Right carotid arterial system: The right common carotid artery is widely patent, as are the right internal and external carotid arteries. Calcified plaque is noted in the carotid bulb. Left carotid arterial system: The left common carotid artery is widely patent, as are the left internal and external carotid arteries. Minimal calcified plaque is seen in the carotid bulb. Vertebral arteries: The vertebral arteries are widely patent bilaterally and codominant. Subclavian arteries: Widely patent bilaterally. Intracranial vasculature: There is atherosclerotic calcification of the cavernous carotid and vertebral arteries. The internal carotid arteries are patent at the skull base, as are the anterior and middle cerebral arteries bilaterally. The vertebrobasilar system and posterior cerebral arteries are widely patent. The vertebral arteries are codominant. There is no aneurysm, high-grade stenosis, or focal vessel cut off seen throughout the intracranial circulation. Jugular veins: Patent bilaterally. Dural sinuses: Patent. Lung apices: Partially visualized upper lobe lung parenchyma appears clear. Soft tissues: The visualized pharyngeal soft tissues are normal in appearance noting angiographic phase technique. The oropharyngeal airway appears widely patent. The thyroid gland is mildly enlarged and heterogeneous. Calcified sialoliths are noted in the left parotid gland. The remaining salivary glands are normal in appearance. No cervical lymphadenopathy is seen. Skeletal structures: The skeletal structures are osteopenic. The calvarium appears intact. The cervical spine is maintained noting multilevel spondylosis. No lytic or blastic lesion is seen. Orbits: The bony orbits are intact. Orbital contents are normal as visualized noting bilateral ocular lens implants. Sinuses and mastoids: There is trace mucosal thickening within the maxillary antra. The remaining paranasal sinuses are clear. The mastoid air cells are well pneumatized. IMPRESSION: 1. There is no hemorrhage, mass effect, or evidence of acute territorial ischemia by CT criteria. 2. Unremarkable CT angiogram of the brain. 3. Unremarkable CT angiogram of the neck. ACT 112: Negative or not required by law. Electronically signed by: Salty Gu M.D. 01/17/2022 1:46 PM Medications Administered Home Medications olmesartan 20 mg tablet 20 mg PO QAM 03/30/19 [History Confirmed 01/17/22] aspirin 325 mg tablet 325 - 650 mg PO BID PRN 01/17/22 [History Confirmed 01/17/22] simvastatin 80 mg tablet 80 mg PO QPM 01/17/22 [History Confirmed 01/17/22] Active Medications Sodium Chloride (Nss 1000ml) 1,000 mls @ 50 mls/hr IV .Q20H WILLIAN Stop: 02/16/22 11:29 Last Admin: 01/17/22 11:40 Dose: 50 mls/hr Documented by: Code Status & VTE Plan Code Status Conditional Code. DNI Supervising Attestation I personally examined the patient and verified all sherman points of history and exam, discussed case, and agree with decision making with Rhianna Ramesh L face droop started monday. vitals noted nad heent nc at mmm conversastionally appropriate and making sarcastic jokes but does have some slowness w word finding. sl L face droop. otherwise as above CVA - suspect small vessel disease from lipids, BP, tobacco abuse - but MRI brain to eval further. CT angio reassuring, check lipids/A1c in AM. will need local PCP otherwise as above
[2022-01-17] MEDS ORDERED: hydrALAZINE HCL 20 MG/ML VIAL IV PRN (15:48)
[2022-01-17] MEDS ORDERED: LABETALOL HCL IV 5 MG/ML 20ML IV PRN (15:48)
--- NOTE | 2022-01-17 15:49 | Electrocardiogram Report ---
Test Reason : Blood Pressure : / mmHG Vent. Rate : 088 BPM Atrial Rate : 088 BPM P-R Int : 160 ms QRS Dur : 072 ms QT Int : 382 ms P-R-T Axes : 052 010 032 degrees QTc Int : 462 ms Normal sinus rhythm Low voltage QRS Borderline ECG No previous ECGs available Confirmed by Jay Blackmon ([id number]) on 01/17/2022 3:48:38 PM Referred By: REFERRED SELF Confirmed By:Jay Blackmon
[2022-01-17] MEDS ORDERED: ACETAMINOPHEN 325 MG TAB PO PRN (18:41)
[2022-01-17] MEDS ORDERED: POLYETHYLENE (MIRALAX) 17 GM PACK PO PRN (18:41)
[2022-01-17] MEDS ORDERED: MoRPHine SULFATE 2 MG/ML CARP IV PRN (18:41)
[2022-01-17] MEDS ORDERED: NITROGLYCERIN SL 0.4 MG/TAB TAB SL PRN (18:41)
[2022-01-17] MEDS ORDERED: MAGNESIUM HYDROXIDE SUSP 30 ML UDC PO PRN (18:41)
[2022-01-17] MEDS ORDERED: ALUMINUM/MAGNESIUM SUSP 30 ML UDC PO PRN (18:41)
[2022-01-17] MEDS ORDERED: ONDANSETRON INJ 2 MG/ML 2 ML VIAL IV PRN (18:41)
[2022-01-17] MEDS ORDERED: PHARMACIST DISCHARGE MED REC CONSULT PRN (18:41)
[2022-01-17] MEDS ORDERED: GADOBUTROL 65ML VIAL IV ONE (22:11)
[2022-01-18 07:06] LABS: Basophils # (auto) 0.05 K/uL (0-0.2); Basophils % (auto) 0.6 %; Eosinophils # (auto) 0.16 K/uL (0-0.5); Hemoglobin 13.5 g/dL (12.0-16.0); Immature Granulocytes # (auto) 0.02 K/uL (0.00-0.02); Immature Granulocytes % (auto) 0.3 %; Lymphocytes # (auto) 2.17 K/uL (1.2-3.4); Lymphocytes % (auto) 27.3 %; Mean Corpuscular Hemoglobin 29.9 pg (25-34); Mean Corpuscular Hgb Conc 32.9 g/dL (32-36); Mean Corpuscular Volume 90.7 fL (80-100); Mean Platelet Volume 9.6 fL (7.4-10.4); Monocytes # (auto) 0.57 K/uL (0.11-0.59); Monocytes % (auto) 7.2 %; Neutrophils # (auto) 4.99 K/uL (1.4-6.5); Neutrophils % (auto) 62.6 %; Platelet Count 335 K/uL (130-400); RDW Coefficient of Variation 15.1 % (11.5-14.5); RDW Standard Deviation 50.6 fL (36.4-46.3); Red Blood Count 4.52 M/uL (4.2-5.4); White Blood Count 7.96 K/uL (4.8-10.8)
[2022-01-18 07:31] LABS: BUN Creatinine Ratio 18.8 (10-20); Calcium 9.3 mg/dl (8.5-10.1); Chol HDL Ratio 3.9 (0-5); Creatinine Clr Calc Pharmacy 57.5 ml/min; Est GFR (African American) 86.6 ml/min; Est GFR (Non-African American) 74.7 ml/min; Potassium 3.8 mmol/L (3.5-5.1)
[2022-01-18 08:00] LABS: Estimated Average Glucose 137 mg/dl; Hemoglobin A1C 6.4 % (4.5-5.6)
[2022-01-18] MEDS ORDERED: ATORVASTATIN 40 MG TAB PO SCH (09:00)
[2022-01-18] MEDS ORDERED: ENOXAPARIN INJ 40 MG/0.4 ML SYR SQ SCH (09:00)
[2022-01-18] MEDS ORDERED: OLMESARTAN MEDOXOMIL 20 MG TAB PO SCH (09:00)
--- NOTE | 2022-01-18 09:45 | Magnetic Resonance Report ---
MRI OF THE BRAIN WITHOUT AND WITH IV CONTRAST CLINICAL HISTORY: Facial weakness. Slurred speech. COMPARISON STUDY: Head CT and CTA of the head January 17, 2022. TECHNIQUE: Utilizing a 1.5 Micheline magnet and dedicated coil, multiplanar, multiecho imaging of the br ain was performed pre and postcontrast administration. IV administration of Gadavist contrast was un eventful. FINDINGS: Note is made of several small foci of restricted diffusion within the posterior right front al lobe that measure up to 7 mm. These represent small acute infarcts. There is no mass effect. No ac sriram hemorrhage. Ventricular system is unremarkable. Basal cisterns are patent. Flow-voids for the ana paula or intracranial vessels are present. Several old infarcts are noted, the largest of which is within t he left occipital lobe. No intracranial mass or pathologic enhancement is present. Calvarial signal i s within normal limits. No evidence for acute sinusitis. IMPRESSION: Several small acute infarcts within the posterior right frontal lobe that measure up to 7 mm. No mass effect. No hemorrhage. ACT 112: Negative or not required by law. Electronically signed by: Mikey Fuentes M.D. 01/18/2022 9:43 AM
--- NOTE | 2022-01-18 09:56 | Med Student Discharge Summary ---
Date of Service January 18, 2022 Admission HPI Per Admitting Provider Admission Exam (Per Admitting) Constitutional well developed; no acute distress Respiratory normal respiratory effort, lungs clear to auscultation no respiratory distress Cardiovascular RRR, no murmur, no edema Gastrointestinal (Abdomen) normal bowel sounds, soft, nontender, no hepatosplenomegaly Neurologic normal touch/pain/proprioception, CN's II-XI intact bilaterally (except left side facial droop(cheeck, mouth) spares forhead. Tongue midline), moves all extremities and + focal motor deficit (left sided facail weakenss) Speech / Cognition: + abnormal speech (slowed speech) Psychiatric A+Ox3, euthymic affect Discharge Exam Constitutional well developed; no acute distress Respiratory normal respiratory effort, lungs clear to auscultation no respiratory distress Cardiovascular RRR, no murmur, no edema Gastrointestinal (Abdomen) normal bowel sounds, soft, nontender, no hepatosplenomegaly Neurologic normal touch/pain/proprioception, CN's II-XI intact bilaterally (except left side facial droop(cheeck, mouth) spares forhead. Tongue midline), moves all extremities and + focal motor deficit (left sided facail weakenss) Speech / Cognition: + abnormal speech (slowed speech) Psychiatric A+Ox3, euthymic affect Discharge Data Consultations 01/17/22 14:35 ED Decision to Admit Stat Hospital Course (1) Cerebrovascular accident: Patient with a hx of HLD, HTN, and smoking, was on a suboptimal regimen, presents with left sided facial droop that spares the forehead. -CT head/neck and CTA show no abnormalities. -MRI revealed several infarcts in the left posterior frontal lobe. -Echocardiogram showed normal chamber sizes, no wall motion abnormalities, 70% ejection fraction NSR on telemetry. -uncertain source of multiple acute strokes given normal echo and CTA, cardioembolic seems more likely -cholesterol levels not at goal. transitioned from simvastatin 80 to 40 mg atorvastatin PO QAM - recommend outpatient cardiac event monitor to further delineate concerns for Afib/arrhythmia -started on Eliquis 5 mg BID (2) Essential hypertension: chronic. 160s/80s throughout hospital stay -continue Omlesartan 20 mg QAM. consider transition to alternative BP med if home readings continue to be not at goal. (3) Hyperlipemia: chronic. not at goal. LDL 92 -transitioned from simvastatin 80 mg to 40 mg atorvastatin -recommend recheck in 3 months Discharge Plan Discharge Items Patient Disposition: Home - Self-Care Reason For Visit: WEAKNESS Discharge Diagnosis: CVA Activity: Per Instructions section Non-emergency contact: Primary Care Provider Call non-emergency contact if: you have any medication questions, your symptoms worsen and your temperature is above 101 Follow-up/Referrals: Bruno Castro D.O. [Primary Care Provider] - Adrián Griffin DO [Resident] - 01/25/22 2:10 pm Diet: Heart Healthy Addtl Attending Provider Instructions: Risk Factors for Stroke: You can reduce your chances of stroke by working with your medical provider to adopt a healthy lifestyle. Some specific ways to lower your chance of stroke are: * If you are a smoker, now is the time to stop smoking cigarettes * If you are diabetic, improve the control of your blood sugars * Avoid excessive amounts of alcohol * Control high blood pressure * Lose weight if you are overweight * Be sure to lead an active lifestyle * Eat a healthy diet low in salt, cholesterol and fat You should know about other risk factors for stroke that you are unable to control. These include: * Age 55 years or older * Male gender * Certain racial groups: , or / * Family History of Stroke, Mini stroke or Heart Attack * Sickle Cell Disease Follow Up: It is important for you to keep your follow up appointments with your medical provider. Who to Call and When: Medical Emergencies: Call 911 immediately if you experience any of the follo wing warning signs and symptoms of Stroke: * Sudden numbness or weakness of the face, arm or leg, especially on one side of the body * Sudden confusion, trouble speaking or understanding * Sudden trouble seeing in one or both eyes * Sudden trouble walking, dizziness, loss of balance or coordination * Sudden severe headache with no cause Do not delay calling 911 if you experience any warning signs or symptoms of a stroke. Delay in seeking medical attention may affect what treatments can be given to you. . Activity Recommendations: See above Activation of Emergency Medical System: Call 911, immediately, if you experience any of the following: Warning Signs and Symptoms of Stroke: * Sudden numbness or weakness of the face, arm or leg, especially on one side of the body * Sudden confusion, trouble speaking or understanding * Sudden trouble seeing in one or both eyes * Sudden trouble walking, dizziness, loss of balance or coordination * Sudden severe headache with no cause Do not delay calling 911 if you experience any warning signs or symptoms of a stroke. Delay in seeking medical attention may affect what treatments can be given to you. Pending Studies at Discharge: No Stand-Alone Forms: Medications to Prevent Stroke, My [facility] [place], Smoking Cessation Medications and DC Order Prescriptions: New atorvastatin 40 mg Tablet 40 mg PO QAM 30 Days Qty: 30 RF: 0 Eliquis 5 mg tablet 5 mg PO BID Qty: 30 RF: 0 Continued olmesartan 20 mg tablet 20 mg PO QAM RF: 0 Discontinued simvastatin 80 mg tablet 80 mg PO QPM RF: 0 aspirin 325 mg Tablet 325 - 650 mg PO BID PRN (Reason: Pain) RF: 0 Discharge Orders: Discharge Order (Routine); Ordered 01/18/22 Ordered By: Robin Forde/Other Patient Handouts: Prediabetes, Stroke and Heart Disease, 5 Steps for Eating Healthier, Stroke Prevention Activity Admission Data Admit Date/Time: 01/17/22 15:09 Attending Provider: Alex Cox Admit Provider: Robin Paredes Primary Care Provider: Bruno Castro Other Providers: Alex Cox Other Interventions: Discharge Summary Assessment (RN) Last Done: 01/18/22 16:35 Supervising Attestation I personally examined the patient and verified all sherman points of history and exam, discussed case, and agree with decision making with Rhianna Ramesh MS4 feeling about the same really wants to go home. willing to have close and ongoing outpt f/u. discussed dx, ddx, current working plan - pt expressed good undesrtanding of ddx/plan/risks/benefit vitals noted nad breathing unlabored no accessory muscles good effort ongoing L face droop no other noted neuro deficits speech seems more fluent today CVA - MRI showing multiple areas acute same hemisphere, chronically she shows evidence of bihemispheric strokes. TTE OK, really wants to go home. set up w PCP and case verbally signed out to him to continue care as well. for now assuming cardioembolic/afib until proven otherwise - discussed risks/benefits for empiric antiplatelet vs anticoagulation pending further w/u - and she/I both agree with her circumstances anticoagulation makes the most sense. for event monitor, possible outpt YNES, close outpt f/u. home on eliquis. ongoing lipid/BP/tobacco management as well otherwise as above Results & Data Laboratory Results . Diagnostic Findings . Laboratory Results WBC 7.96 K/uL (4.8-10.8) 01/18/22 06:42 RBC 4.52 M/uL (4.2-5.4) 01/18/22 06:42 Hgb 13.5 g/dL (12.0-16.0) 01/18/22 06:42 Hct 41.0 % (37-47) 01/18/22 06:42 MCV 90.7 fL (80-100) 01/18/22 06:42 MCH 29.9 pg (25-34) 01/18/22 06:42 MCHC 32.9 g/dL (32-36) 01/18/22 06:42 RDW Std Deviation 50.6 fL (36.4-46.3) H 01/18/22 06:42 RDW Coeff of Samson 15.1 % (11.5-14.5) H 01/18/22 06:42 Plt Count 335 K/uL (130-400) 01/18/22 06:42 MPV 9.6 fL (7.4-10.4) 01/18/22 06:42 Immature Gran % (Auto) 0.3 % 01/18/22 06:42 Neut % (Auto) 62.6 % 01/18/22 06:42 Lymph % (Auto) 27.3 % 01/18/22 06:42 [place] % (Auto) 7.2 % 01/18/22 06:42 Eos % (Auto) 2.0 % 01/18/22 06:42 Baso % (Auto) 0.6 % 01/18/22 06:42 Neut # (Auto) 4.99 K/uL (1.4-6.5) 01/18/22 06:42 Lymph # (Auto) 2.17 K/uL (1.2-3.4) 01/18/22 06:42 [place]ax # (Auto) 0.57 K/uL (0.11-0.59) 01/18/22 06:42 Eos # (Auto) 0.16 K/uL (0-0.5) 01/18/22 06:42 Baso # (Auto) 0.05 K/uL (0-0.2) 01/18/22 06:42 Immature Gran # (Auto) 0.02 K/uL (0.00-0.02) 01/18/22 06:42 PT 10.1 Seconds (9.0-12.0) 01/17/22 11:55 INR 0.9 (0.9-1.1) 01/17/22 11:55 APTT 28.9 Seconds (21.0-31.0) 01/17/22 11:55 PTT Ratio 1.1 01/17/22 11:55 Sodium 139 mmol/L (136-145) 01/18/22 06:42 Potassium 3.8 mmol/L (3.5-5.1) 01/18/22 06:42 Chloride 108 mmol/L (98-107) H 01/18/22 06:42 Carbon Dioxide 23 mmol/L (21-32) 01/18/22 06:42 Anion Gap 8 (3-11) 01/18/22 06:42 BUN 15 mg/dl (6-23) 01/18/22 06:42 Creatinine 0.80 mg/dl (0.6-1.2) 01/18/22 06:42 Est Cr Clr Drug Dosing 57.5 ml/min 01/18/22 06:42 Est GFR ( Amer) 86.6 ml/min 01/18/22 06:42 Est GFR (Non-Af Amer) 74.7 ml/min 01/18/22 06:42 BUN/Creatinine Ratio 18.8 (10-20) 01/18/22 06:42 Glucose 108 mg/dl (70-99(Fasting)) H 01/18/22 06:42 Estimat Average Glucose 137 mg/dl 01/18/22 06:42 Hemoglobin A1c 6.4 % (4.5-5.6) H 01/18/22 06:42 Calcium 9.3 mg/dl (8.5-10.1) 01/18/22 06:42 Magnesium 1.8 mg/dl (1.7-2.4) 01/17/22 11:55 Total Bilirubin 0.3 mg/dl (0.2-1.0) 01/17/22 11:55 AST 15 U/L (13-39) 01/17/22 11:55 ALT 20 U/L (7-52) 01/17/22 11:55 Alkaline Phosphatase 102 U/L (34-104) 01/17/22 11:55 Troponin I High Sens 4.6 pg/ml (0-14) 01/17/22 11:55 Total Protein 7.2 gm/dl (6.0-8.3) 01/17/22 11:55 Albumin 4.2 gm/dl (3.4-5.0) 01/17/22 11:55 Globulin 3.0 gm/dl (2.5-4.0) 01/17/22 11:55 Albumin/Globulin Ratio 1.4 (0.9-2) 01/17/22 11:55 Triglycerides 127 mg/dl (0-150) 01/18/22 06:42 Cholesterol 158 mg/dl (0-200) 01/18/22 06:42 LDL Cholesterol, Calc 92 mg/dl 01/18/22 06:42 VLDL Cholesterol, Calc 25 mg/dl (0-30) 01/18/22 06:42 HDL Cholesterol 41 mg/dl 01/18/22 06:42 Cholesterol/HDL Ratio 3.9 (0-5) 01/18/22 06:42 SARS-CoV-2, RNA, NAAT NEGATIVE (NEGATIVE) 01/17/22 11:[address] 01/17/22 11:[address] OF THE BRAIN; CT ANGIOGRAM OF THE BRAIN; CT ANGIOGRAM OF THE NECK CLINICAL HISTORY: Right-sided facial droop. Slurred speech. COMPARISON STUDY: No priors. TECHNIQUE: Unenhanced axial CT scan of the brain is performed. Subsequently, following the IV administration of 120 of Optiray 320, CT angiogram of the head and neck was performed from the aortic arch to the vertex. Images are reviewed in the axial, sagittal, and coronal planes. 3-D MIPS images are created and assessed. IV contrast was administered without complication. All measurements were calculated based on NASCET criteria. A dose lowering technique was utilized adhering to the principles of ALARA. CT DOSE: 822.00 mGycm (accession [id number]), 690.05 mGycm (accession [id number]) FINDINGS: Brain parenchyma: There is age-related involutional change noting minimal microangiopathic disease. Left occipital encephalomalacia is consistent with a remote insult. There is no hemorrhage, mass effect, or evidence of acute territorial ischemia by CT criteria. There is no evidence of enhancing mass lesion on the angiogram phase images. The ventricles, sulci, and cisterns are prominent secondary to involutional change. A chronic lacunar infarct is noted in the right cerebellar hemisphere. Brennan-white matter differentiation is preserved. No extra-axial fluid collection is seen. Thoracic aorta: There is atherosclerotic calcification of the visualized thoracic aorta. Right carotid arterial system: The right common carotid artery is widely patent, as are the right internal and external carotid arteries. Calcified plaque is noted in the carotid bulb. Left carotid arterial system: The left common carotid artery is widely patent, as are the left internal and external carotid arteries. Minimal calcified plaque is seen in the carotid bulb. Vertebral arteries: The vertebral arteries are widely patent bilaterally and codominant. Subclavian arteries: Widely patent bilaterally. Intracranial vasculature: There is atherosclerotic calcification of the cavernous carotid and vertebral arteries. The internal carotid arteries are patent at the skull base, as are the anterior and middle cerebral arteries bilaterally. The vertebrobasilar system and posterior cerebral arteries are widely patent. The vertebral arteries are codominant. There is no aneurysm, high -grade stenosis, or focal vessel cut off seen throughout the intracranial circulation. Jugular veins: Patent bilaterally. Dural sinuses: Patent. Lung apices: Partially visualized upper lobe lung parenchyma appears clear. Soft tissues: The visualized pharyngeal soft tissues are normal in appearance noting angiographic phase technique. The oropharyngeal airway appears widely patent. The thyroid gland is mildly enlarged and heterogeneous. Calcified sialoliths are noted in the left parotid gland. The remaining salivary glands are normal in appearance. No cervical lymphadenopathy is seen. Skeletal structures: The skeletal structures are osteopenic. The calvarium appears intact. The cervical spine is maintained noting multilevel spondylosis. No lytic or blastic lesion is seen. Orbits: The bony orbits are intact. Orbital contents are normal as visualized noting bilateral ocular lens implants. Sinuses and mastoids: There is trace mucosal thickening within the maxillary antra. The remaining paranasal sinuses are clear. The mastoid air cells are well pneumatized. IMPRESSION: 1. There is no hemorrhage, mass effect, or evidence of acute territorial ischemia by CT criteria. 2. Unremarkable CT angiogram of the brain. 3. Unremarkable CT angiogram of the neck. ACT 112: Negative or not required by law. Electronically signed by: Salty Gu M.D. 01/17/2022 1:46 PM Head CTA 01/17/22 11:[address] OF THE BRAIN; CT ANGIOGRAM OF THE BRAIN; CT ANGIOGRAM OF THE NECK CLINICAL HISTORY: Right-sided facial droop. Slurred speech. COMPARISON STUDY: No priors. TECHNIQUE: Unenhanced axial CT scan of the brain is performed. Subsequently, following the IV administration of 120 of Optiray 320, CT angiogram of the head and neck was performed from the aortic arch to the vertex. Images are reviewed in the axial, sagittal, and coronal planes. 3-D MIPS images are created and assessed. IV contrast was administered without complication. All measurements were calculated based on NASCET criteria. A dose lowering technique was utilized adhering to the principles of ALARA. CT DOSE: 822.00 mGycm (accession [id number]), 690.05 mGycm (accession [id number]) FINDINGS: Brain parenchyma: There is age-related involutional change noting minimal microangiopathic disease. Left occipital encephalomalacia is consistent with a r emote insult. There is no hemorrhage, mass effect, or evidence of acute territorial ischemia by CT criteria. There is no evidence of enhancing mass lesion on the angiogram phase images. The ventricles, sulci, and cisterns are prominent secondary to involutional change. A chronic lacunar infarct is noted in the right cerebellar hemisphere. Brennan-white matter differentiation is preserved. No extra-axial fluid collection is seen. Thoracic aorta: There is atherosclerotic calcification of the visualized thoracic aorta. Right carotid arterial system: The right common carotid artery is widely patent, as are the right internal and external carotid arteries. Calcified plaque is noted in the carotid bulb. Left carotid arterial system: The left common carotid artery is widely patent, as are the left internal and external carotid arteries. Minimal calcified plaque is seen in the carotid bulb. Vertebral arteries: The vertebral arteries are widely patent bilaterally and codominant. Subclavian arteries: Widely patent bilaterally. Intracranial vasculature: There is atherosclerotic calcification of the cavernous carotid and vertebral arteries. The internal carotid arteries are patent at the skull base, as are the anterior and middle cerebral arteries bilaterally. The vertebrobasilar system and posterior cerebral arteries are widely patent. The vertebral arteries are codominant. There is no aneurysm, high-grade stenosis, or focal vessel cut off seen throughout the intracranial circulation. Jugular veins: Patent bilaterally. Dural sinuses: Patent. Lung apices: Partially visualized upper lobe lung parenchyma appears clear. Soft tissues: The visualized pharyngeal soft tissues are normal in appearance noting angiographic phase technique. The oropharyngeal airway appears widely patent. The thyroid gland is mildly enlarged and heterogeneous. Calcified sialoliths are noted in the left parotid gland. The remaining salivary glands are normal in appearance. No cervical lymphadenopathy is seen. Skeletal structures: The skeletal structures are osteopenic. The calvarium appears intact. The cervical spine is maintained noting multilevel spondylosis. No lytic or blastic lesion is seen. Orbits: The bony orbits are intact. Orbital contents are normal as visualized noting bilateral ocular lens implants. Sinuses and mastoids: There is trace mucosal thickening within the maxillary antra. The remaining paranasal sinuses are clear. The mastoid air cells are well pneumatized. IMPRESSION: 1. There is no hemorrhage, mass effect, or evidence of acute territorial isch emia by CT criteria. 2. Unremarkable CT angiogram of the brain. 3. Unremarkable CT angiogram of the neck. ACT 112: Negative or not required by law. Electronically signed by: Salty Gu M.D. 01/17/2022 1:46 PM Neck CTA 01/17/22 11:[address] OF THE BRAIN; CT ANGIOGRAM OF THE BRAIN; CT ANGIOGRAM OF THE NECK CLINICAL HISTORY: Right-sided facial droop. Slurred speech. COMPARISON STUDY: No priors. TECHNIQUE: Unenhanced axial CT scan of the brain is performed. Subsequently, following the IV administration of 120 of Optiray 320, CT angiogram of the head and neck was performed from the aortic arch to the vertex. Images are reviewed in the axial, sagittal, and coronal planes. 3-D MIPS images are created and assessed. IV contrast was administered without complication. All measurements were calculated based on NASCET criteria. A dose lowering technique was utilized adhering to the principles of ALARA. CT DOSE: 822.00 mGycm (accession [id number]), 690.05 mGycm (accession [id number]) FINDINGS: Brain parenchyma: There is age-related involutional change noting minimal microangiopathic disease. Left occipital encephalomalacia is consistent with a remote insult. There is no hemorrhage, mass effect, or evidence of acute territorial ischemia by CT criteria. There is no evidence of enhancing mass lesion on the angiogram phase images. The ventricles, sulci, and cisterns are prominent secondary to involutional change. A chronic lacunar infarct is noted in the right cerebellar hemisphere. Brennan-white matter differentiation is p reserved. No extra-axial fluid collection is seen. Thoracic aorta: There is atherosclerotic calcification of the visualized thoracic aorta. Right carotid arterial system: The right common carotid artery is widely patent, as are the right internal and external carotid arteries. Calcified plaque is noted in the carotid bulb. Left carotid arterial system: The left common carotid artery is widely patent, as are the left internal and external carotid arteries. Minimal calcified plaque is seen in the carotid bulb. Vertebral arteries: The vertebral arteries are widely patent bilaterally and c odominant. Subclavian arteries: Widely patent bilaterally. Intracranial vasculature: There is atherosclerotic calcification of the cavernous carotid and vertebral arteries. The internal carotid arteries are patent at the skull base, as are the anterior and middle cerebral arteries bilaterally. The vertebrobasilar system and posterior cerebral arteries are widely patent. The vertebral arteries are codominant. There is no aneurysm, high-grade stenosis, or focal vessel cut off seen throughout the intracranial circulation. Jugular veins: Patent bilaterally. Dural sinuses: Patent. Lung apices: Partially visualized upper lobe lung parenchyma appears clear. Soft tissues: The visualized pharyngeal soft tissues are normal in appearance noting angiographic phase technique. The oropharyngeal airway appears widely patent. The thyroid gland is mildly enlarged and heterogeneous. Calcified sialoliths are noted in the left parotid gland. The remaining salivary glands are normal in appearance. No cervical lymphadenopathy is seen. Skeletal structures: The skeletal structures are osteopenic. The calvarium appears intact. The cervical spine is maintained noting multilevel spondylosis. No lytic or blastic lesion is seen. Orbits: The bony orbits are intact. Orbital contents are normal as visualized noting bilateral ocular lens implants. Sinuses and mastoids: There is trace mucosal thickening within the maxillary antra. The remaining paranasal sinuses are clear. The mastoid air cells are well pneumatized. IMPRESSION: 1. There is no hemorrhage, mass effect, or evidence of acute territorial ischemia by CT criteria. 2. Unremarkable CT angiogram of the brain. 3. Unremarkable CT angiogram of the neck. ACT 112: Negative or not required by law. Electronically signed by: Salty Gu M.D. 01/17/2022 1:46 PM Brain MRI 01/17/22 18:41 MRI OF THE BRAIN WITHOUT AND WITH IV CONTRAST CLINICAL HISTORY: Facial weakness. Slurred speech. COMPARISON STUDY: Head CT and CTA of the head January 17, 2022. TECHNIQUE: Utilizing a 1.5 Micheline magnet and dedicated coil, multiplanar, multiecho imaging of the brain was performed pre and postcontrast administration. IV administration of Gadavist contrast was uneventful. FINDINGS: Note is made of several small foci of restricted diffusion within the posterior right frontal lobe that measure up to 7 mm. These represent small acute infarcts. There is no mass effect. No acute hemorrhage. Ventricular system is unremarkable. Basal cisterns are patent. Flow-voids for the major intracran ial vessels are present. Several old infarcts are noted, the largest of which is within the left occipital lobe. No intracranial mass or pathologic enhancement is present. Calvarial signal is within normal limits. No evidence for acute sinusitis. IMPRESSION: Several small acute infarcts within the posterior right frontal lobe that measure up to 7 mm. No mass effect. No hemorrhage. ACT 112: Negative or not required by law. Electronically signed by: Mikey Fuentes M.D. 01/18/2022 9:43 AM
--- NOTE | 2022-01-18 11:46 | XCELERA ---
[id number]
--- NOTE | 2022-01-18 14:22 | Communication Note ---
Date of Service: January 18, 2022 By CMS guidelines, a determination that the admission or continued stay is not medically necessary has been made by a member of the UR committee and a phy sician for this hospital stay, therefore a Code 44 will be completed and the Inpatient admission will be changed to outpatient.
[2022-01-18] MEDS ORDERED: STROKE PATIENT DISCHARGE STA (16:16)
--- NOTE | 2022-01-18 18:35 | Billing Data ---
Date of Service January 17, 2022 Coding Level of Care Code 92741 Initial Inpt Care Lvl 3
--- NOTE | 2022-01-18 18:40 | Billing Data ---
Date of Service January 18, 2022 Coding Level of Care Code 70242 OBS Care - Discharge
--- NOTE | 2022-01-18 21:44 | Pharmacy Report ---
Pharmacist Stroke Counseling - Date of Service January 18, 2022 - Scope: Pharmacy has been consulted to provide medication discharge counseling for this patient admitted with [ischemic stroke] [hemorrhagic stroke] [transient ischemic attack] as per the Pharmacist Discharge Counseling for Stroke Patients Protoc ol. - Medications on Discharge: Medication Instructions Recorded Confirmed olmesartan 20 mg tablet 20 mg PO QAM 03/30/19 01/17/22 Medication Instructions Recorded apixaban 5 mg tablet (Eliquis) 5 mg PO BID #30 tab 01/18/22 atorvastatin 40 mg tablet 40 mg PO QAM 30 Days #30 tab 01/18/22 - Action: The above medications, specifically ones for stroke treatment/prophylaxis, have been reviewed in detail with the patient and/or patient labor union business representative(s) prior to discharge. This includes indication, common adverse reactions, drug interactions, and medication administration. Medication counseling has been employed using the teach-back method to ensure understanding. - Outcome: The patient and/or patient labor union business representative(s) have demonstrated understanding of the medications. Thank you for allowing pharmacy to be involved in the care of this patient. Please call [phone] with any additional questions
== END 2022-01-18 17:54 | disposition home or self-care (01) | DRG 65 ==
LOC: ED 10:34 → INTOOBSV 15:09 → 2N 15:09